=== PATIENT | female | born 1985 | race Caucasian/White ===

== ENCOUNTER 2016-11-22 15:44 | Emergency (ER) | payer SELFPAY ==
[2016-11-22] MEDS ORDERED: MOTRIN PO ONE (21:07)
[2016-11-22] MEDS ORDERED: BACTRIM DS PO ONE (21:09)
[2016-11-22] MEDS ORDERED: KEFLEX PO ONE (21:09)
--- NOTE | 2016-11-22 21:11 | Emergency Department Report ---
- General Chief complaint: Skin/Abscess/Foreign Body Stated complaint: RIGHT HAND NUMBNESS, ABSCESS Time Seen by Provider: 11/22/16 20:11 Source: patient Mode of arrival: Ambulatory Limitations: No Limitations - History of Present Illness Initial comments: 31-year-old female past medical history PTSD, schizophrenia, IVDA including IV cocaine actively presents with complaint of abscess to her right wrist region for approximately 2 weeks. She states that it was draining pus several days ago and has significantly decreased in size but states that she is experiencing discomfort on the skin near her wrist. Denies fevers or chills. Is active IVDA. Denies any other symptoms. States that this is an injection site. Denies any needle breakage MD complaint: abscess/boil (to top of right wrist) Onset/Timin -: week(s) Location: RUE (right wrist) Severity: moderate Severity scale (0 -10): 6 Quality: aching Improves with: none Worsens with: none Context: none Treatments Prior to Arrival: none - Related Data Previous Rx's Medication Instructions Recorded Last Taken Type Cephalexin [Keflex] 500 mg PO BID #14 capsule 11/22/16 Unknown Rx Naproxen 500 mg PO BID PRN #30 tablet 11/22/16 Unknown Rx Sulfamethoxazole/Trimethoprim 1 each PO BID #14 tablet 11/22/16 Unknown Rx [Bactrim DS TAB] Allergies Allergy/AdvReac Type Severity Reaction Status Date / Time Antifungal - Imidazole Allergy Swelling Verified 11/22/16 15:49 azithromycin [From Zithromax] Allergy Swelling Verified 11/22/16 15:49 Abscess Boil HPI - HPI Chief Complaint: Skin/Abscess/Foreign Body Stated Complaint: RIGHT HAND NUMBNESS, ABSCESS Time Seen by Provider: 11/22/16 20:11 Home Medications: Previous Rx's Medication Instructions Recorded Last Taken Type Cephalexin [Keflex] 500 mg PO BID #14 capsule 11/22/16 Unknown Rx Naproxen 500 mg PO BID PRN #30 tablet 11/22/16 Unknown Rx Sulfamethoxazole/Trimethoprim 1 each PO BID #14 tablet 11/22/16 Unknown Rx [Bactrim DS TAB] Allergies/Adverse Reactions: Allergies Allergy/AdvReac Type Severity Reaction Status Date / Time Antifungal - Imidazole Allergy Swelling Verified 11/22/16 15:49 azithromycin [From Zithromax] Allergy Swelling Verified 11/22/16 15:49 ED Review of Systems ROS: Stated complaint: RIGHT HAND NUMBNESS, ABSCESS Other details as noted in HPI Comment: IV drug use- cocaine Constitutional: denies: chills, fever Eyes: denies: eye pain, eye discharge, vision change ENT: denies: ear pain, throat pain Respiratory: denies: cough, shortness of breath, wheezing Cardiovascular: denies: chest pain, palpitations Endocrine: no symptoms reported Gastrointestinal: denies: abdominal pain, nausea, diarrhea Genitourinary: denies: urgency, dysuria, discharge Musculoskeletal: denies: back pain, joint swelling, arthralgia Skin: denies: rash, lesions Neurological: denies: headache, weakness, paresthesias Psychiatric: denies: anxiety, depression Hematological/Lymphatic: denies: easy bleeding, easy bruising ED Past Medical Hx - Past Medical History Previous Medical History?: Yes Hx Psychiatric Treatment: Yes Additional medical history: cirrhosis - Surgical History Hx Cholecystectomy: Yes - Social History Smoking Status: Current Every Day Smoker Substance Use Type: None - Medications Home Medications: Home Medications Medication Instructions Recorded Confirmed Last Taken Type Cephalexin [Keflex] 500 mg PO BID #14 capsule 11/22/16 Unknown Rx Naproxen 500 mg PO BID PRN #30 tablet 11/22/16 Unknown Rx Sulfamethoxazole/Trimethoprim 1 each PO BID #14 tablet 11/22/16 Unknown Rx [Bactrim DS TAB] ED Physical Exam - General Limitations: No Limitations General appearance: alert, in no apparent distress - Head Head exam: Present: atraumatic, normocephalic - Eye Eye exam: Present: normal appearance, PERRL, EOMI - ENT ENT exam: Present: mucous membranes moist - Neck Neck exam: Present: normal inspection, full ROM - Respiratory Respiratory exam: Present: normal lung sounds bilaterally. Absent: respiratory distress - Cardiovascular Cardiovascular Exam: Present: regular rate, normal rhythm. Absent: systolic murmur, diastolic murmur, rubs, gallop - GI/Abdominal GI/Abdominal exam: Present: soft, normal bowel sounds - Extremities Exam Extremities exam: Present: normal inspection - Expanded Upper Extremity Exam Right Upper Arm exam: Present: normal inspection, full ROM Elbow exam: Present: normal inspection, full ROM Forearm Wrist exam: Present: normal inspection, full ROM Hand Wrist exam: Present: tenderness, swelling (abscess to distal rigth wrist), erythema (tenderness and erythema to right wrist) Neuro motor exam: Present: wrist extension intact, thumb opposition intact, thumb IP flexion intact, thumb adduction intact, fingers 2-5 abduction intact - Back Exam Back exam: Present: normal inspection - Neurological Exam Neurological exam: Present: alert, oriented X3 - Psychiatric Psychiatric exam: Present: normal affect, normal mood - Skin Skin exam: Present: warm, dry, intact, normal color. Absent: rash ED Course Vital Signs 11/22/16 11/22/16 15:47 21:34 Temperature 98.5 F Pulse Rate 92 H Respiratory 20 18 Rate Blood Pressure 109/64 O2 Sat by Pulse 97 Oximetry - I & D Right Distal Wrist Type of Procedure: Simple Site: right distal lateral wrist Blade Size: 11 I & D Procedure: betadine prep, sterile drapes applied, sterile dressing applied Progress: Area is infiltrated with lidocaine with epinephrine and good anesthesia achieved single stab incision made minimal purulent drainage. Covered with gauze and Kerlix afterward. ED Medical Decision Making - Medical Decision Making A/P: Right wrist abscess/cellulitis 1-no clinical signs of tenosynovitis, range of motion right hand fingers and wrist intact 2-treat empirically with Keflex and Bactrim 3-naproxen 500 mg when necessary 4- I advised patient to return to the ED if abscess re-accumulates or if site of cellulitis spreads beyond marked borders Critical care attestation.: If time is entered above; I have spent that time in minutes in the direct care of this critically ill patient, excluding procedure time. ED Disposition Clinical Impression: Abscess, wrist, Cellulitis of wrist Disposition: - TO HOME OR SELFCARE Is pt being admited?: No Does the pt Need Aspirin: No Condition: Stable Instructions: Abscess (ED), Acute Wound Care (ED), Incision and Drainage (ED), Cellulitis (ED) Prescriptions: Cephalexin [Keflex] 500 mg PO BID #14 capsule Naproxen 500 mg PO BID PRN #30 tablet PRN Reason: Pain Sulfamethoxazole/Trimethoprim [Bactrim DS TAB] 1 each PO BID #14 tablet Referrals: [facility] [place] [Outside] - 3-5 Days [facility] [Outside] - 3-5 Days Forms: Work/School Release Form(ED) Time of Disposition: 22:04
[2016-11-22 22:16] VITALS: BP 104/81
== END 2016-11-22 22:16 | disposition home or self-care (01) ==
LOC: ED 15:44
DX: L03.113 Cellulitis of right upper limb (principal); F17.200 Nicotine dependence, unspecified, uncomplicated; Z88.1 Allergy status to other antibiotic agents